=== PATIENT | female | born 2000 | race Caucasian/White ===

== ENCOUNTER 2021-11-29 06:17 | Emergency (ER) | payer OTHER ==
[~2021-11-29] VITALS: Ht 152.4 cm; Wt 61.8 kg
[2021-11-29 06:22] VITALS: BP 122/80
== END 2021-11-29 06:57 | disposition home or self-care (01) ==
LOC: EMS 06:19
DX: R04.0 Epistaxis (principal)
CPT/HCPCS: 99283; Z7502